=== PATIENT | male | born 1945 | race Caucasian/White ===

== ENCOUNTER 2020-04-15 21:13 | Emergency (ER) | payer MEDICARE, BC, SELFPAY ==
[2020-04-15 21:19] VITALS: BP 126/99; PULSE 76; RESP 22; O2SAT 94
--- NOTE | 2020-04-15 21:22 | ED.GENADULT ---
HPI - General Adult General Chief complaint: Recheck/Abnormal Lab/Rx Stated complaint: chichi told me to come here Time Seen by Provider: 04/15/20 21:17 History of Present Illness HPI narrative: Patient is a 75-year-old gentleman who presents the emergency department with chief complaint of elevated INR. Patient was recently discharged from [facility] after he was admitted for congestive heart failure exacerbation. 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 Per [facility] records the patient's INR was 12.5 and he was sent to the emergency department have a repeat. The patient does report that approximately 4 days ago he fell backwards and landed on his back did not strike his head did not have loss of consciousness but does report that he has a bruise on his back. Related Data Allergies Allergy/AdvReac Type Severity Reaction Status Date / Time ticagrelor Allergy Intermediate swelling Unverified 10/08/13 16:35 Penicillins Allergy Mild Rash Unverified 10/08/13 16:35 Review of Systems Review of Systems: Narrative: A 10 system review of systems was completed on the patient and is negative except for what is stated in the HPI. Nursing and ancillary documentation was reviewed. PMFSH Comments Patient has past medical history is for congestive heart failure atrial fibrillation Social history patient lives with his denies illicit drug use Exam Narrative: Exam Narrative: GENERAL: Well-appearing, well-nourished, and in no acute distress. HEAD: Normocephalic, atraumatic. EYES: PERRLA and EOMI. ENT: Nares clear, no rhinorrhea or epistaxis. Mucous membranes moist. NECK: Supple. CHEST: Clear to auscultation. No respiratory distress. HEART: Regular rate and rhythm. No murmur heard. Normal peripheral pulses. ABDOMEN: Soft, nontender, nondistended, normal active bowel sounds. Back: There is a large approximately 10 inch diameter contusion to the back in the thoracic/lumbar region EXTREMITIES: Normal range of motion. No edema. SKIN: Warm, dry, no rash. NEURO: No focal deficits. Alert and oriented x3. PSYCH: Normal mood and affect. Course Vital Signs Vital signs: Vital Signs Pulse Rate 76 04/15/20 21:19 Respiratory Rate 22 H 04/15/20 21:19 Blood Pressure 126/99 H 04/15/20 21:19 Pulse Oximetry 94 04/15/20 21:19 Pulse Rate 76 04/15/20 21:19 Respiratory Rate 22 H 04/15/20 21:19 Blood Pressure 126/99 H 04/15/20 21:19 Pulse Oximetry 94 04/15/20 21:19 Medical Decision Making Vital Signs Vital Signs: Vital Signs Pulse Rate 76 04/15/20 21:19 Respiratory Rate 22 H 04/15/20 21:19 Blood Pressure 126/99 H 04/15/20 21:19 Pulse Oximetry 94 04/15/20 21:19 Pulse Rate 76 04/15/20 21:19 Respiratory Rate 22 H 04/15/20 21:19 Blood Pressure 126/99 H 04/15/20 21:19 Pulse Oximetry 94 04/15/20 21:19 Lab Data Result diagrams: 04/15/20 21:37 04/15/20 21:37 Labs: Lab Results 04/15/20 04/15/20 04/15/20 Range/Units 21:37 21:37 21:37 WBC 6.8 (4.5-10.0) K/mm3 RBC 3.77 L (4.6-6.20) M/mm3 Hgb 9.6 L (14.0-18.0) g/dL Hct 32.4 L (42.0-52.0) % MCV 85.9 (80-100) fl MCH 25.5 L (26-34) pg MCHC 29.6 L (32-36) g/dl RDW 19.8 H (11.5-14.5) % Plt Count 227 (150-375) k/mm3 MPV 9.6 (7.4-10.4) fl Immature Gran % (Auto) 0.4 (0-0.5) % Neut % (Auto) 61.8 (45.5-73.1) % Lymph % (Auto) 18.9 (18.3-44.2) % Harmon % (Auto) 11.7 H (2.6-8.5) % Eos % (Auto) 6.6 H (0-4.4) % Baso % (Auto) 0.6 (0.2-1.2) % Lymph # (Auto) 1.29 (0.9-3.2) K/mm3 Harmon # (Auto) 0.8 H (0.1-0.6) K/mm3 Eos # (Auto) 0.5 H (0-0.3) K/mm3 Baso # (Auto) 0.0 (0.0-0.1) K/mm3 Abs Immat Gran (auto) 0.03 (0.00-0.031) K/mm3 Absolute Neuts (auto) 4.2 (1.3-6.7) K/mm3 Absolute Nuclea
[2020-04-15 21:43] LABS: Basophils Percent Auto 0.6 % (0.2-1.2); Eosinophils Absolute Auto 0.5 K/mm3 (0-0.3); Eosinophils Percent Auto 6.6 % (0-4.4); Hematocrit 32.4 % (42.0-52.0); Hemoglobin 9.6 g/dL (14.0-18.0); Immature Granulocyte Absolute 0.03 K/mm3 (0.00-0.031); Immature Granulocyte Percent A 0.4 % (0-0.5); Lymphocytes Absolute Auto 1.29 K/mm3 (0.9-3.2); Lymphocytes Percent Auto 18.9 % (18.3-44.2); Mean Corpuscular HGB Conc 29.6 g/dl (32-36); Mean Corpuscular Hemoglobin 25.5 pg (26-34); Mean Corpuscular Volume 85.9 fl (80-100); Mean Platelet Volume 9.6 fl (7.4-10.4); Monocytes Absolute Auto 0.8 K/mm3 (0.1-0.6); Monocytes Percent Auto 11.7 % (2.6-8.5); Neutrophils Absolute Auto 4.2 K/mm3 (1.3-6.7); Neutrophils Percent Auto 61.8 % (45.5-73.1); Platelet Count Result 227 k/mm3 (150-375); Red Blood Count 3.77 M/mm3 (4.6-6.20); Red Cell Distribution Width 19.8 % (11.5-14.5); White Blood Count 6.8 K/mm3 (4.5-10.0)
[2020-04-15 21:55] LABS: Alanine Aminotransferase 17 U/L (4-50); Albumin Level 3.6 g/dL (3.5-5.1); Alkaline Phosphatase 76 U/L (38-126); Anion Gap 9 mmol/L (8-16); Aspartate Amino Transferase 31 U/L (17-59); Bilirubin,Total 0.6 mg/dL (0.2-1.3); Blood Urea Nitrogen 48 mg/dL (9-20); Calcium 8.8 mg/dL (8.4-10.2); Carbon Dioxide 28 mmol/L (22-30); Chloride 99 mmol/L (98-107); Estimated CRCL calculation 29 ml/min; Estimated Glomerular Filt Rate 24; Glucose 210 mg/dL (75-110); Potassium 4.6 mmol/L (3.4-5.0); Sodium 136 mmol/L (137-145)
[2020-04-15 21:56] LABS: Platelet Estimate Adequate (Adequate)
[2020-04-15 21:57] LABS: Anisocytosis 1+ (NORMAL); Hypochromasia 1+ (NORMAL); Ovalocytes 1+ (NORMAL)
[2020-04-15 22:14] LABS: Prothrombin Time 57.3 Seconds (11.1-14.7)
[2020-04-15 22:15] LABS: INR 6.6
[2020-04-15 22:37] VITALS: BP 123/81; PULSE 63; RESP 18; O2SAT 94
== END 2020-04-15 22:39 | disposition home or self-care (01) ==
PROVIDERS: Emergency Provider Emergency Medicine; PCP Internal Medicine Endocrinology, Diabetes & Metabolism
DX: R79.1 Abnormal coagulation profile (principal); I50.9 Heart failure, unspecified; I48.91 Unspecified atrial fibrillation; Z79.01 Long term (current) use of anticoagulants
CPT/HCPCS: 36415; 80053; 85025; 85610; 85730; 99283